=== PATIENT | male | born 1995 | race African-American/Black ===

== ENCOUNTER 2017-09-23 17:24 | Emergency (ER) | payer OTHER ==
[~2017-09-23] VITALS: Ht 170.2 cm; Wt 74.5 kg
[2017-09-23 17:30] VITALS: BP 123/80; TEMP 98.3
[2017-09-23] MEDS ORDERED: PROAIR HFA0.09 MG/AC IH (17:32)
[2017-09-23] MEDS ORDERED: EFFEXOR 75M75 MG/TAB PO (17:32)
[2017-09-23 19:02] VITALS: PULSE 92
== END 2017-09-23 19:02 | disposition home or self-care (01) ==
LOC: COL.ER 17:24
DX: M25.571 Pain in right ankle and joints of right foot (principal); M79.671 Pain in right foot; M79.661 Pain in right lower leg; F32.9 Major depressive disorder, single episode, unspecified; W01.0XXA Fall on same level from slipping, tripping and stumbling without subsequent striking against object, initial encounter; Y92.219 Unspecified school as the place of occurrence of the external cause

== ENCOUNTER 2019-05-03 11:51 | Emergency (ER) | payer OTHER ==
[~2019-05-03] VITALS: Ht 170.2 cm; Wt 67.7 kg
[~2019-05-03 11:51] MED LIST: EFFEXOR 75M75 MG/TAB PO; PROAIR HFA0.09 MG/AC IH
[2019-05-03 11:56] VITALS: BP 131/84; TEMP 97.9
[2019-05-03 12:46] VITALS: PULSE 94
== END 2019-05-03 12:33 | disposition home or self-care (01) ==
LOC: COL.ER 11:51
DX: R59.0 Localized enlarged lymph nodes (principal); J45.909 Unspecified asthma, uncomplicated; F32.9 Major depressive disorder, single episode, unspecified